=== PATIENT | male | born 1990 | race Caucasian/White ===

== ENCOUNTER 2016-06-21 04:23 | Emergency (ER) | payer MEDICAID, OTHER ==
[~2016-06-21] VITALS: Ht 180.3 cm; Wt 79.4 kg
[2016-06-21 04:31] VITALS: BP 125/55; PULSE 85; RESP 16; TEMP 98.9; O2SAT 97
[2016-06-21 05:26] VITALS: BP 122/57; PULSE 84; RESP 16; TEMP 98.8; O2SAT 97
== END 2016-06-21 05:26 | disposition home or self-care (01) ==
LOC: SED 04:23
DX: R05 Cough (principal); F11.20 Opioid dependence, uncomplicated; R07.81 Pleurodynia
CPT/HCPCS: 99283